=== PATIENT | male | born 1955 | race African-American/Black ===

== ENCOUNTER 2016-08-18 10:46 | Emergency (ER) | payer SELFPAY ==
[2016-08-18 11:00] VITALS: BP 155/98
[2016-08-18] MEDS ORDERED: RABIES IMMUNE GLOBULIN PF 150 UNIT/ML 10ML VIAL. VAX IM ONE (11:15)
[2016-08-18] MEDS ORDERED: AMOX1TAB61 PO (11:38)
--- NOTE | 2016-08-18 11:38 | PHYS DOC ---
Past History Past Medical History: No Pertinent History Past Surgical History: No Surgical History Alcohol Use: None Drug Use: None Adult General Chief Complaint Chief Complaint: ANIMAL BITE HPI HPI 61-year-old male presenting to the emergency department after having a dog bite. 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 His dog bite was in the right leg/thigh. Animal control was able to get the dog to the pound. The [place] [employer] and sustained an abrasion to his left arm. He denies hitting his head or losing consciousness. Onset today. Location legs. Duration constant. No alleviating factors present. Review of systems is negative for chest pain shortness of breath headache fevers chills. All other review of systems is negative unless otherwise noted in history of present illness. ED course: 61-year-old gentleman presenting to the emergency department with a dog bite. Tetanus updated. The wound was explored and without evidence of foreign body. Given the nature of the injury, we will let this heal by secondary intention. I had a risk-benefit discussion with the family and it was decided not to initiate rabies postexposure prophylaxis, but rather observe the dog for 10 days. X-ray of the elbow was unremarkable. The patient was then discharged home in stable condition to follow up with their primary care physician over the next 2-3 days. They were to return if their symptoms worsened or if they were concerned for any reason. [id number] discharge instructions and return precautions were given. Patient's questions were answered to their satisfaction. Patient is comfortable plan. Review of Systems Review of Systems SEE ABOVE. Current Medications Current Medications Current Medications Medications (Trade) Dose Ordered Sig/May Start Time Stop Time Status Last Admin Dose Admin Diphtheria/ Tetanus/Acell Pertussis (Boostrix) 0.5 ml ONCE ONCE 08/18/16 11:15 08/18/16 11:16 UNV Rabies Immune Globulin (Imogam Rabies) 10 ml ONCE ONCE 08/18/16 11:15 08/18/16 11:16 UNV Rabies Vaccine Human Diploid Cell (Imovax Rabies 2.5 Unit / ml) 1 ml ONCE ONCE 08/18/16 11:15 08/18/16 11:16 UNV Physical Exam Physical Exam Constitutional: Well developed, well nourished, no acute distress, non-toxic appearance. [] HENT: Normocephalic, atraumatic, bilateral external ears normal, oropharynx moist, no oral exudates, nose normal. Eyes: PERRLA, EOMI, conjunctiva normal, no discharge. Neck: Normal range of motion, no tenderness, supple, no stridor. [] Cardiovascular:Heart rate regular rhythm, no murmur Lungs & Thorax: Bilateral breath sounds clear to auscultation [] Abdomen: Bowel sounds normal, soft, no tenderness, no masses, no pulsatile masses. Skin: Warm, dry, no erythema, no rash. Back: No tenderness, no CVA tenderness. [] Extremities: No tenderness, no cyanosis, no clubbing, ROM intact, no edema. [] Small abrasion over the left elbow. Superficial and not involving the joint. The patient also has bite johnson on the inner thigh that are superficial. No foreign body present. The patient neurovascularly intact in all extremities. Neurologic: Alert and oriented X 3, normal motor function, normal sensory function, no focal deficits noted. Psychologic: Affect normal, judgement normal, mood normal. [] EKG EKG [] Radiology/Procedures Radiology/Procedures [] Course & Med Decision Making Course & Med Decision Making Pertinent Labs and Imaging studies reviewed. (See chart for details) [] Dragon Disclaimer Dragon Disclaimer This chart was dictated in whole or in part using Voice Recognition software in a busy, high-work load, and often noisy Emergency Department environment. It may contain unintended and wholly unrecognized errors or omissions. Departure Departure: Impression: Primary Impression: Dog bite Additional Impression: Abrasion Disposition: 01 HOME, SELF-CARE Condition: STABLE Referrals: CONRADO LUTZ APRN (PCP) Patient Instructions: Animal Bite, Rabies Vaccine suspension for injection Additional Instructions: Thank you for allowing us to participate in your care today. Followup with your primary care physician in 3 days if your symptoms do not improve. If you do not have a primary care provider you can ask for a list of our primary care providers. Return to the emergency department you have any new or concerning findings. This should be evaluated by the primary care physician and any necessary consulting services for continued management within a few days after discharge. Return to emergency room if you have any new or concerning symptoms including but not limited to fever, chills, nausea, vomiting, intractable pain, any new rashes, chest pain, shortness of air, uncontrolled bleeding, difficulty breathing, and/or vision loss. Scripts Amoxicillin/Potassium Clav (AUGMENTIN 875-125 TABLET) 1 Each Tablet 1 TAB PO BID, #20 TAB Prov: GINA PATIÑO MD 08/18/16 Problem Qualifiers GINA PATIÑO MD August 18, 2016 11:38
[2016-08-18] MEDS ORDERED: RABIES VIRUS VACC PF 2.5 UNIT / 1 ML VIAL. VAX IM ONE (12:30)
[2016-08-18] MEDS ORDERED: DIPHTH,PERTUSS(ACELL),TET TOX 0.5 ML DISP.SYRIN. VAX IM ONE (12:30)
--- NOTE | 2016-08-18 12:46 | RAD ---
Indication fall and dark by 8. AP oblique and lateral views of the left elbow were obtained. Soft tissue injury about the dorsal aspect of the elbow is noted. No bony abnormality is seen. IMPRESSION: Soft tissue injury. No bony abnormality seen
== END 2016-08-18 12:50 | disposition home or self-care (01) ==
LOC: ER 10:46
DX: S71.151A Open bite, right thigh, initial encounter (principal); S40.812A Abrasion of left upper arm, initial encounter; W54.0XXA Bitten by dog, initial encounter; Y93.89 Activity, other specified; Y99.8 Other external cause status; Y92.89 Other specified places as the place of occurrence of the external cause
CPT/HCPCS: 73080; 90471; 90715; 99284-25